=== PATIENT | female | born 1930 | race Caucasian/White ===

== ENCOUNTER → 2016-12-21 | Outpatient (CLI) | payer OTHER ==
--- NOTE | 2016-12-22 14:42 | RAD ---
EXAM DESCRIPTION: Thoracic Spine,AP Lateral CLINICAL HISTORY: 86 years,Female,BACK PAIN COMPARISON: None FINDINGS: The thoracic spine demonstrates T11 demonstrates a mild superior endplate compression fracture. And T6.. Disc heights appear unremarkable for age. Surrounding soft tissues are unremarkable. There are 12 pairs of ribs. There is hyperinflation of the lungs and paucity of lung markings IMPRESSION: Superior endplate mild compression fractures of T6 and T11 age-indeterminate. Moderate emphysematous changes Electronically signed by: Moy Burciaga MD 12/22/2016 2:41 PM CDT
== END | disposition home or self-care (01) ==
LOC: RAD 15:16
PROVIDERS: ATTEND Nurse Practitioner Family
DX: M54.6 Pain in thoracic spine (principal)

== ENCOUNTER 2020-07-02 09:00 | Inpatient (IN) | payer MEDICARE, OTHER ==
[2020-07-02] MEDS ORDERED: HYDROmorphone HCL INJ 2 MG/ML VIAL IV ONE (09:25)
[2020-07-02] MEDS ORDERED: ONDANSETRON INJ 4 MG/2 ML VIAL IV ONE (09:49)
--- NOTE | 2020-07-02 10:03 | RAD ---
EXAM DESCRIPTION: Pelvis (accession [id number]), Femur,Right (accession [id number]), Hip,Right 2 Views (accession [id number]) CLINICAL HISTORY: 89 years Female, fall this am COMPARISON: None. TECHNIQUE: Single view radiograph of the pelvis, 4 view radiograph of the right femur, 2 view radiograph of the right hip. IMPRESSION: Acute minimally displaced intertrochanteric fracture of the proximal right femur. 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 Lumbar spondylosis. Pelvic phleboliths with calcification in the midline pelvis which may represent uterine calcification of degenerative fibroids. Electronically signed by: Matthew Grace MD 07/02/2020 10:01 AM CDT [facility]
--- NOTE | 2020-07-02 10:03 | RAD ---
EXAM DESCRIPTION: Pelvis (accession [id number]), Femur,Right (accession [id number]), Hip,Right 2 Views (accession [id number]) CLINICAL HISTORY: 89 years Female, fall this am COMPARISON: None. TECHNIQUE: Single view radiograph of the pelvis, 4 view radiograph of the right femur, 2 view radiograph of the right hip. IMPRESSION: Acute minimally displaced intertrochanteric fracture of the proximal right femur. 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 Lumbar spondylosis. Pelvic phleboliths with calcification in the midline pelvis which may represent uterine calcification of degenerative fibroids. Electronically signed by: Matthew Grace MD 07/02/2020 10:01 AM CDT [facility]
--- NOTE | 2020-07-02 10:03 | RAD ---
EXAM DESCRIPTION: Pelvis (accession [id number]), Femur,Right (accession [id number]), Hip,Right 2 Views (accession [id number]) CLINICAL HISTORY: 89 years Female, fall this am COMPARISON: None. TECHNIQUE: Single view radiograph of the pelvis, 4 view radiograph of the right femur, 2 view radiograph of the right hip. IMPRESSION: Acute minimally displaced intertrochanteric fracture of the proximal right femur. 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 Lumbar spondylosis. Pelvic phleboliths with calcification in the midline pelvis which may represent uterine calcification of degenerative fibroids. Electronically signed by: Matthew Grace MD 07/02/2020 10:01 AM CDT [id number]
--- NOTE | 2020-07-02 10:25 | ED.PDOC ---
History of Present Illness - General Chief Complaint: Trauma Stated Complaint: Fall with R hip pain Time Seen by Provider: 07/02/20 09:12 Source: patient Exam Limitations: no limitations - History of Present Illness Initial Comments: The patient is an 89-year-old female presented to the emergency room after having fallen about 3 hours ago. The patient was unable to get off of the floor. EMS brought her in. She apparently tripped and fell and did not pass out. She is hurting in the right hip and no results. She apparently is completely functional on her own prior. She denies taking any blood thinners. She denies having any significant heart or lung problems. She denies any significant coronavirus exposure. She was at her baseline level of health until this happened. The patient is pleasant and cooperative. She appears to be neurovascularly at her baseline distally. Again pain is localized to the right hip. No evidence of significant bruising or palpable deformity. No laceration. Pain is present with both active and passive range of motion. Timing/Duration: 4-6 hours Improving Factors: immobilization Worsening Factors: movement Associated Symptoms: denies symptoms Allergies/Adverse Reactions: Allergies Ibuprofen Allergy (Verified 07/02/20 09:23) Penicillins Allergy (Verified 07/02/20 09:23) Review of Systems - Review of Systems Constitutional: States: no symptoms reported EENTM: States: no symptoms reported Respiratory: States: no symptoms reported Cardiology: States: no symptoms reported Gastrointestinal/Abdominal: States: no symptoms reported Genitourinary: States: no symptoms reported Musculoskeletal: States: see HPI Skin: States: no symptoms reported Neurological: States: no symptoms reported Endocrine: States: no symptoms reported Hematologic/Lymphatic: States: no symptoms reported All other Systems: No Change from Baseline Past Medical History (General) - Patient Medical History Hx Stroke: No Hx of COPD: No Hx Cardiac Disorders: No Hx Congestive Heart Failure: No Hx Hypertension: No Hx Diabetes: No Hx Cancer: No Surgical History: no surgical history - Vaccination History Hx Influenza Vaccination: No Hx Pneumococcal Vaccination: No - Social History Hx Tobacco Use: No Hx Alcohol Use: No Hx Substance Use: No Hx Substance Use Treatment: No Hx Depression: No - Female History Patient is a Female of Child Bearing Age (10 -59 yrs old): No Patient : No Family Medical History - Family History Mother Family History: No Known Living Status: Physical Exam - Physical Exam General Appearance: Alert Eye Exam: bilateral normal Ears, Nose, Throat: hearing grossly normal, normal pharynx Neck: full range of motion, supple Respiratory: lungs clear, normal breath sounds, no respiratory distress, no accessory muscle use Cardiovascular/Chest: normal peripheral pulses, regular rate, rhythm, no edema Peripheral Pulses: radial,right: 2+, radial,left: 2+ Gastrointestinal/Abdominal: non tender, soft Rectal Exam: deferred Back Exam: no vertebral tenderness Extremity: no pedal edema, no calf tenderness, normal capillary refill, other - See history of present illness 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 The patient appears to have a minimally displaced intertrochanteric fracture of the proximal right femur. This is based on multiple x-rays. She does appear to be neurovascularly her baseline. Last oral intake was around 3 AM this morning. No evidence of other injury. Preoperative labs are pending. The patient has received several doses of IV pain medications. Dr. Oliveira has been contacted and is planning on performing surgery later this morning or early this afternoon. The patient is being made n.p.o. Departure - Departure Clinical Impression: Inability to perform activities of daily living Fracture of femur Qualifiers: Encounter type: initial encounter Femur location: intertrochanteric Fracture type: closed Fracture alignment: nondisplaced Laterality: right Qualified Code(s): S72.144A - Nondisplaced intertrochanteric fracture of right femur, initial encounter for closed fracture Fall at home Qualifiers: Encounter type: initial encounter Qualified Code(s): W19.XXXA - Unspecified fall, initial encounter; Y92.009 - Unspecified place in unspecified non- institutional (private) residence as the place of occurrence of the external cause Disposition: Admit Patient Departure Forms: ED Discharge - Pt. Copy, Patient Portal Self Enrollment Decision To Admit - Decistion To Admit Decision to Admit Reason: Accidental Injury Decision to Admit Date: 07/02/20 Decision to Admit Time: 10:28
--- NOTE | 2020-07-02 11:20 | RAD ---
EXAM DESCRIPTION: Chest,1 View CLINICAL HISTORY: prior to surgery COMPARISON: None Available. TECHNIQUE: One view radiograph of the chest FINDINGS: Calcific atherosclerosis of the aortic arch. Cardiac silhouette shows normal heart size. Pulmonary vascularity is within normal limits. Lungs show no confluent infiltrates. No pleural effusion. No pneumothorax. No acute osseous abnormality. IMPRESSION: No acute cardiopulmonary process. Electronically signed by: Moy Wheeler MD 07/02/2020 11:18 AM CDT
[2020-07-02] MEDS ORDERED: LACTATED RINGERS 1,000 ML IVS ONE (12:06)
[2020-07-02] MEDS ORDERED: VANCOMYCIN HCL INJ 1,000 MG in SODIUM CHLORIDE 0.9% 250ML 250 ML IVPB ONE (12:09)
[2020-07-02] MEDS ORDERED: fentaNYL CITRATE INJ 50 MCG/ML 2 ML AMP ONE (12:11)
[2020-07-02] MEDS ORDERED: FAMOTIDINE INJ 10 MG/ML VIAL IV ONE (12:11)
[2020-07-02] MEDS ORDERED: KETAMINE HCL 100 MG/ML VIAL ONE (12:14)
[2020-07-02] MEDS ORDERED: ROCURONIUM BROMIDE 10 MG/ML VIAL ONE (12:33)
[2020-07-02] MEDS ORDERED: HYDROcodone 5MG/APAP 325MG 1 EA TAB PO PRN (12:40)
[2020-07-02] MEDS ORDERED: BUPIVACAINE 0.5% 30 ML VIAL INJ ONE (12:59)
[2020-07-02] MEDS ORDERED: BUPIVACAINE LIPOSOME 13.3 MG/ML VIAL INJ ONE (12:59)
[2020-07-02] MEDS ORDERED: ceFAZolin SODIUM 1 GM VIAL INJ ONE ×2 (13:13→13:29)
[2020-07-02] MEDS ORDERED: VANCOMYCIN HCL INJ 1,000 MG VIAL IVPB ONE ×2 (13:13→13:29)
[2020-07-02] MEDS ORDERED: SUGAMMADEX SODIUM 200 MG/2 ML VIAL IV ONE (13:36)
[2020-07-02] MEDS ORDERED: MAGNESIUM SULFATE INJ 1 GM/2 ML VIAL IVPB ONE (13:57)
[2020-07-02] MEDS ORDERED: PROPOFOL 200 MG/20 ML VIAL IV ONE (13:57)
[2020-07-02] MEDS ORDERED: GLYCOPYRROLATE 0.2 MG/ML VIAL IV ONE (13:57)
[2020-07-02] MEDS ORDERED: ePHEDrine SULF 50 MG/ML IV ONE (13:57)
[2020-07-02] MEDS ORDERED: DEXAMETHASONE INJ 10 MG/ML VIAL IV ONE (13:57)
[2020-07-02] MEDS ORDERED: ceFAZolin SODIUM 1 GM VIAL IVPB ONE (13:57)
[2020-07-02] MEDS ORDERED: LIDOCAINE 1% 10 ML VIAL INJ ONE (13:57)
[2020-07-02] MEDS ORDERED: LACTATED RINGERS 1,000 ML ONE (14:08)
--- NOTE | 2020-07-02 16:44 | RAD ---
EXAM DESCRIPTION: Hip,Right 2 Views CLINICAL HISTORY: 89 years Female post op COMPARISON: None. TECHNIQUE: RIGHT hip, two views FINDINGS: Postop film was acquired following placement of TFN transfixing the intertrochanteric fracture of the right hip. Fracture still well visualized. Alignment is anatomic. Subcutaneous stranding and emphysema is present. IMPRESSION: ORIF of the intertrochanteric right hip fracture with anatomic alignment Electronically signed by: Heidi Vides MD 07/02/2020 4:42 PM CDT
--- NOTE | 2020-07-02 16:45 | RAD ---
EXAM DESCRIPTION: Pelvis,2 or More Views CLINICAL HISTORY: 89 years Female post op COMPARISON: None. TECHNIQUE: Two AP views of the pelvis. FINDINGS: Postop film was acquired following placement of TFN transfixing the intertrochanteric fracture of the right hip. Fracture still well visualized. Alignment is anatomic. Subcutaneous stranding and emphysema is present. Degenerative changes in the lower lumbar spine. Calcifications in the pelvis likely representing fibroids. Phleboliths are also present. Symphysis pubis and SI joints appear intact. IMPRESSION: ORIF of the intertrochanteric right hip fracture with anatomic alignment Electronically signed by: Heidi Vides MD 07/02/2020 4:43 PM CDT
--- NOTE | 2020-07-02 17:21 | CONS ---
SUPERVISING PHYSICIAN: Garrison Mendoza MD DATE OF CONSULTATION: 07/02/20 CHIEF COMPLAINT: Right hip pain. HISTORY OF PRESENT ILLNESS: This is a 89-year-old female who presented to the Emergency Room after falling about 3 hours prior to admission to the Emergency Room. She was unable to get up off the floor. She tripped on something at home and fell. Her right hip was hurting and EMS was called. Her initial vital signs were temperature 97.3, heart rate 66, blood pressure 182/86, respiratory rate 16, O2 saturation 96% on room air. Lab studies were done and her CBC was unremarkable. Her electrolytes were basically within normal limits. Glucose was slightly high at 143. Liver enzymes were unremarkable. Urinalysis was negative. Hip x-ray shows acute minimally displaced intertrochanteric fracture of the proximal right femur, mild arthrosis of the hip without dislocation and lumbar spondylosis. Her femur and pelvis x-ray show acute minimally displaced intertrochanteric fracture of the proximal right femur. Chest x-ray shows no acute cardiopulmonary process. She has minimal medical history although she does not go to a primary care physician and has not for many years. She was taken to the Operating Room for Gamma nail repair of the right hip. There were no problems intraoperatively and she was discharged to the Medical/Surgical Floor in the hospital. PAST MEDICAL HISTORY: None reported although she does have hypertensive vital signs. PAST SURGICAL HISTORY: None. OUTPATIENT MEDICATIONS: None. ALLERGIES: IBUPROFEN, PENICILLIN. SOCIAL HISTORY: She lives in [place]. She is . She denies tobacco, ETOH or illicit drug use. REVIEW OF SYSTEMS: Negative except as per history of present illness. PHYSICAL EXAMINATION: VITAL SIGNS: Temperature 97.3, heart rate 96, blood pressure 116/60, respiratory rate 16, O2 saturation 94% on room air. GENERAL: This is an 89-year-old female patient who is lying in her hospital bed. She is in no acute distress. HEENT: Normocephalic, atraumatic. Pupils are equal and reactive. Oropharynx is clear. NECK: Supple without mass. RESPIRATORY: Essentially clear to auscultation bilaterally. CHEST: There is equal rise and fall of the chest with inspiration and expiration. CARDIOVASCULAR: Regular rate and rhythm. GASTROINTESTINAL: Abdomen is soft, nondistended, nontender. Bowel sounds are hypoactive. EXTREMITIES: She has a dressing to her right lateral hip that is dry and intact. Pedal pulses are palpable at +2. NEUROLOGIC: Awake, alert and oriented times three although she is slightly lethargic. Cranial nerves II-XII are grossly intact as tested. SKIN: Warm and dry. LABORATORY: Labs and films are as per history of present illness. IMPRESSION: 1. Right hip pain after same level fall resulting in a right intertrochanteric femur fracture status post Gamma nail repair by Dr. Wayne Oliveira, orthopedic surgeon, postoperative day #0. 2. Undiagnosed hypertension. PLAN: We will continue present supportive care. Orthopedic issues will be per Dr. Wayne Oliveira, orthopedic surgeon. She will begin her physical therapy for strengthening and conditioning tomorrow. I have started her on some lisinopril for tomorrow. We will monitor her blood pressure closely over the next few days. I will also do some labs for in the morning and encourage good pulmonary hygiene. We will follow the patient closely and follow as needed. #[id number] [facility]
[2020-07-02] MEDS ORDERED: ENOXAPARIN SODIUM 40 MG/0.4 ML SYG SUBCU ONE (18:58)
[2020-07-02] MEDS ORDERED: ENOXAPARIN SODIUM 30 MG/0.3 ML SYG SUBCU SCH (21:00)
[2020-07-03] MEDS: LISINOPRIL 5 MG TAB PO SCH (08:36)
[2020-07-03] MEDS ORDERED: ACETAMINOPHEN 500 MG TAB PO PRN (11:15)
[2020-07-03] MEDS ORDERED: ACETAMINOPHEN 500 MG TAB ONE (11:17)
[2020-07-03] MEDS ORDERED: ONDANSETRON INJ 4 MG/2 ML VIAL IV PRN (14:07)
[2020-07-03] MEDS ORDERED: PROMETHAZINE HCL INJ 12.5 MG in SODIUM CHLORIDE 0.9% 50ML 50 ML IVPB PRN (14:07)
[2020-07-03] MEDS ORDERED: PROMETHAZINE HCL INJ 25 MG in SODIUM CHLORIDE 0.9% 50ML 50 ML IVPB PRN (14:07)
[2020-07-03] MEDS ORDERED: SODIUM CHLORIDE 0.9% (FLUSH) 10 ML SYG IV PRN (14:07)
[2020-07-03] MEDS ORDERED: IV SET AND CAP CHANGE INJ INJ SCH (14:30)
--- NOTE | 2020-07-03 14:57 | PN ---
DATE: 07/03/20 SUBJECTIVE: The patient is doing really well. She up to a chair. OBJECTIVE: Afebrile. Vital signs are stable. Dressing is clean, dry and intact. ASSESSMENT: Status post gamma nailing for intertrochanteric fracture of the right hip. PLAN: The plan at this point is for partial weightbearing. We are going to have her likely transfer to rehab in a couple of days. #[id number] [facility]
[2020-07-03] MEDS ORDERED: traMADol HCL 50 MG TAB ONE (15:18)
[2020-07-03] MEDS: traMADol HCL 50 MG TAB PO PRN (15:31)
--- NOTE | 2020-07-03 16:01 | PN ---
SUPERVISING PHYSICIAN: Garrison Mendoza MD DATE: 07/03/20 SUBJECTIVE: The patient is lying in bed. She has no complaints other than her hip did hurt some during physical therapy, but it is much less pain than yesterday. Her main worry was over her staying alone. I did daughter at length. She lives in the [place] area and the patient will be discharged to a rehab hospital over there when she meets discharge criteria. OBJECTIVE: VITAL SIGNS: Temperature 97.6, heart rate 68, blood pressure 132/67, respiratory rate 18, O2 saturation 96% on room air. RESPIRATORY: Essentially clear to auscultation bilaterally. CARDIAC: Regular rate and rhythm. EXTREMITIES: She has a dressing to her right hip that is dry and intact. Bilateral pedal pulses are palpable at +2. NEUROLOGIC: Awake, alert and oriented times three. LABORATORY: Hemoglobin 11.9, hematocrit 34.9. All other labs and films have been reviewed via the EMR. ASSESSMENT: 1. Right hip pain after same level fall resulting in a right intertrochanteric femur fracture status post Gamma nail repair by Dr. Wayne Oliveira, orthopedic surgeon, postoperative day #1. 2. Undiagnosed hypertension. PLAN: We will continue present supportive care. I have sent a note to [employer] regarding her discharge to a rehab facility in [place]. Plan for discharge is on Sunday. According to the daughter, the patient's will be going with her to [place] and arrangements have been made for his care. I will repeat her H&H in the morning. She will continue with physical therapy for strengthening and conditioning as well as her orthopedic issues will be per Dr. Oliveira. We will continue to monitor the patient and treat as indicated. #[id number] [facility]
[2020-07-03] MEDS ORDERED: ENOXAPARIN SODIUM 30 MG/0.3 ML SYG SUBCU ONE (19:53)
[2020-07-03] MEDS ORDERED: DOCUSATE CALCIUM 240 MG CAP ONE (19:53)
[2020-07-03] MEDS: DOCUSATE CALCIUM 240 MG CAP PO SCH (20:43)
[2020-07-03] MEDS: ENOXAPARIN SODIUM 30 MG/0.3 ML SYG SUBCU SCH (22:29)
[2020-07-04] MEDS ORDERED: traMADol HCL 50 MG TAB ONE ×2 (00:08→08:29)
[2020-07-04] MEDS: traMADol HCL 50 MG TAB PO PRN ×2 (00:09→08:50)
[2020-07-04] MEDS ORDERED: MAGNESIUM OXIDE 400 MG TAB ONE (08:28)
[2020-07-04] MEDS: MAGNESIUM OXIDE 400 MG TAB PO SCH (08:50)
[2020-07-04] MEDS: LISINOPRIL 5 MG TAB PO SCH (08:54)
[2020-07-04] MEDS ORDERED: ENOXAPARIN SODIUM 30 MG/0.3 ML SYG SUBCU ONE ×2 (13:54→20:17)
[2020-07-04] MEDS: ENOXAPARIN SODIUM 30 MG/0.3 ML SYG SUBCU SCH ×2 (14:02→22:52)
[2020-07-04] MEDS ORDERED: CALCIUM CARBONATE (ANTACID) 500 MG CHEWABLE TAB PO PRN (17:12)
[2020-07-04] MEDS ORDERED: CALCIUM CARBONATE (ANTACID) 500 MG CHEWABLE TAB PO ONE ×2 (17:21→17:32)
--- NOTE | 2020-07-04 18:40 | PN ---
SUPERVISING PHYSICIAN: Garrison Mendoza MD DATE: 07/04/20 SUBJECTIVE: The patient is sitting up in bed. She feels much better today than yesterday. We discussed her discharge tomorrow to [facility] in [place]. No complaints of chest pain, nausea, vomiting, diarrhea or shortness of breath. OBJECTIVE: VITAL SIGNS: Temperature 97.7, heart rate 74, blood pressure 133/79, respiratory rate 18, O2 saturation 95% on room air. LABORATORY: Hemoglobin 11, hematocrit 32.3. All other labs and films have been reviewed via the EMR. ASSESSMENT: 1. Right hip pain after same level fall resulting in a right intertrochanteric femur fracture status post Gamma nail repair by Dr. Wayne Oliveira, orthopedic surgeon, postoperative day #2. 2. Undiagnosed hypertension. PLAN: We will continue present supportive care. Orthopedic issues will be per Dr. Wayne Oliveira, orthopedic surgeon. She has been accepted to [facility] in [place] and she should be able to transfer there in the morning. All the information for the facility is in her chart. We will continue to monitor the patient and treat as needed. #[id number] [facility]
[2020-07-04] MEDS ORDERED: HYDROcodone 5MG/APAP 325MG 1 EA TAB ONE (20:15)
[2020-07-04] MEDS ORDERED: DOCUSATE CALCIUM 240 MG CAP ONE ×2 (20:16)
[2020-07-04] MEDS: DOCUSATE CALCIUM 240 MG CAP PO SCH (20:32)
--- NOTE | 2020-07-05 08:55 | PN ---
DATE: 07/05/20 SUBJECTIVE: Ms. You is doing well and has good pain control. OBJECTIVE: Afebrile. Vital signs are stable. The wound is clean. There are no signs or symptoms of infection. ASSESSMENT: Status post Gamma nailing for intertrochanteric fracture of the right hip. PLAN: The plan at this point is for her to be transferred to rehab today. #[id number] [facility]
[2020-07-05] MEDS ORDERED: SODIUM CHLORIDE 0.9% (FLUSH) 10 ML SYG IV SCH (09:00)
[2020-07-05] MEDS ORDERED: SODIUM CHLORIDE 0.9% (FLUSH) 10 ML SYG ONE (11:32)
[2020-07-05] MEDS ORDERED: ENOXAPARIN SODIUM 30 MG/0.3 ML SYG SUBCU ONE (11:32)
[2020-07-05] MEDS ORDERED: MAGNESIUM OXIDE 400 MG TAB ONE (11:32)
[2020-07-05] MEDS ORDERED: LISINOPRIL 5 MG TAB ONE (11:32)
[2020-07-05] MEDS: MAGNESIUM OXIDE 400 MG TAB PO SCH (11:34)
[2020-07-05] MEDS: LISINOPRIL 5 MG TAB PO SCH (11:34)
[2020-07-05] MEDS: ENOXAPARIN SODIUM 30 MG/0.3 ML SYG SUBCU SCH (11:35)
[2020-07-05 11:57] VITALS: TEMP 98.4
[2020-07-05 12:55] VITALS: BP 175/80; O2SAT 97
[2020-07-05] MEDS ORDERED: traMADol HCL 50 MG TAB ONE (13:19)
[2020-07-05] MEDS ORDERED: HYDROcodone 5MG/APAP 325MG 1 EA TAB PO ONE (13:21)
[2020-07-05] MEDS ORDERED: HYDROcodone 5MG/APAP 325MG 1 EA TAB ONE (13:22)
--- NOTE | 2020-07-06 11:24 | DS ---
SUPERVISING PHYSICIAN: Sulaiman Mast MD ADMISSION DIAGNOSIS: 1. Right hip pain after same level fall resulting in a right intertrochanteric femur fracture status post Gamma nail repair by Dr. Wayne Oliveira, orthopedic surgeon, postoperative day #0. 2. Undiagnosed hypertension. DISCHARGE DIAGNOSIS: 1. Right hip pain after same level fall resulting in a right intertrochanteric femur fracture status post Gamma nail repair by Dr. Wayne Oliveira, orthopedic surgeon, postoperative day #3. 2. Undiagnosed hypertension. REASON FOR HOSPITALIZATION: This is a 89-year-old female who presented to the Emergency Room after falling about 3 hours prior to admission to the Emergency Room. She was unable to get up off the floor. She tripped on something at home and fell. Her right hip was hurting and EMS was called. Her initial vital signs were temperature 97.3, heart rate 66, blood pressure 182/86, respiratory rate 16, O2 saturation 96% on room air. Lab studies were done and her CBC was unremarkable. Her electrolytes were basically within normal limits. Glucose was slightly high at 143. Liver enzymes were unremarkable. Urinalysis was negative. Hip x-ray shows acute minimally displaced intertrochanteric fracture of the proximal right femur, mild arthrosis of the hip without dislocation and lumbar spondylosis. Her femur and pelvis x-ray show acute minimally displaced intertrochanteric fracture of the proximal right femur. Chest x-ray shows no acute cardiopulmonary process. She has minimal medical history although she does not go to a primary care physician and has not for many years. She was taken to the Operating Room for Gamma nail repair of the right hip. There were no problems intraoperatively and she was discharged to the Medical/Surgical Floor in the hospital. LABORATORY: Postoperative hemoglobin 11.0 and hematocrit 32.3. Chemistries showed normal electrolytes. Liver functions were all within normal limits. Urinalysis showed trace of intact blood. MICROBIOLOGY: COVID swab was negative. RADIOLOGY: Preoperatively, pelvis x-ray, hip x-ray, femur x-ray showed an acute minimally displaced intertrochanteric fracture of the proximal right femur. Please see all those reports for details. Postoperative pelvic x-ray per radiologic interpretation showed ORIF of the intertrochanteric hip fracture with anatomic alignment. Please see those reports for details. HOSPITAL COURSE: Ms. You was admitted on 07/02/20 for Gamma nailing of a right hip fracture. She was taken to surgery the same day as admission. She had no intraoperative complications. She had no postoperative complications. She did well with physical therapy. After further discussion with the family who live in the [facility], it was decided the best course of treatment was to have the patient transferred to a halfway and rehab facility closer to family members. Arrangements were then made for her to be admitted to [facility]. She was found clinically stable enough to continue with management as a rehab patient and was discharged to be transferred by privately owned vehicle. PLAN: Ms. You was discharged and admitted to rehab as noted above. She can followup with Dr. Oliveira and call to schedule an appointment. Diet was regular diet as tolerated. Physical therapy will evaluate and treat. The patient was not on any home medications. MEDICATIONS PRESCRIBED ON DISCHARGE: 1. Lisinopril 5 mg daily. 2. Magnesium oxide 40 mg daily. 3. Xarelto 10 mg daily for a total of 27 days. 4. Keflex 500 mg b.i.d. for 5 days. CONDITION ON DISCHARGE: Stable and improved. DISPOSITION: The patient was discharged and transferred to [facility] facility. #[id number] [facility]
[2020-07-06] MEDS ORDERED: BISACODYL SUPPOSITORY 10 MG PR ONE (21:00)
[2020-07-06] MEDS ORDERED: MAGNESIUM HYDROXIDE 30 ML UD PO ONE (21:00)
--- NOTE | 2020-07-07 10:14 | OP ---
DATE OF PROCEDURE: 07/02/20 PREOPERATIVE DIAGNOSIS: 1. Intertrochanteric fracture of the right hip. POSTOPERATIVE DIAGNOSIS: 1. Intertrochanteric fracture of the right hip. PROCEDURE: 1. Gamma nail. SURGEON: Wayne Oliveira MD. REAMING MACHINE TENDER: Mu Tijerina CST, SA-C. ANESTHESIA: General anesthesia. COMPLICATIONS: None. FINDINGS: Intertrochanteric fracture of the right hip. INDICATION: Ms. You has a history of falling on the day of presentation. She had the acute onset of pain in the hip and subsequently had x-rays that revealed an intertrochanteric fracture of the hip. After discussing the risks, benefits and alternatives to operative therapy, she gave informed consent. PROCEDURE: The patient was brought to the Operating Room and placed in the supine position. General anesthesia was administered and the patient was placed on the fracture table. The fracture was provisionally reduced under fluoroscopic imaging and after reduction, the leg and hemipelvis were sterilely prepped and draped. An incision was made just proximal to the greater trochanter and dissection was carried through the iliotibial band and down to the greater trochanter. A starting pin was placed and a one-step reamer was used to open the femoral canal. A 125 degree angled Gamma nail was inserted into the canal to the appropriate level. A guide pin was placed from the lateral cortex into the femoral head. The appropriate length compression screw was measured and inserted with the placement guided under direct imaging. Following that, the distal locking screw was drilled, measured, and placed under imaging. The proximal locking screw was placed through the outrigger into the top of the nail and the outrigger removed. The final construct was imaged and the wounds were thoroughly irrigated, followed by closure with Monocryl suture. Sterile dressings were placed. The patient was awoken from anesthesia and taken to the Recovery Room. Postoperatively, she will be partial weightbearing and we will get her up on the day after surgery. #[id number] [facility]
== END 2020-07-05 13:45 | DRG 482 ==
LOC: ER 09:00 → OBSVTOIN 13:56 → MS 13:56
PROVIDERS: ADMIT Nurse Practitioner Acute Care; ATTEND Nurse Practitioner Family
PROC: 0QS634Z Reposition Right Upper Femur with Internal Fixation Device, Percutaneous Approach (ICD-10-PCS; principal; 2020-07-02 12:30)
DX: S72.141A Displaced intertrochanteric fracture of right femur, initial encounter for closed fracture (principal); I10 Essential (primary) hypertension; Z88.0 Allergy status to penicillin; Z88.6 Allergy status to analgesic agent; F03.90 Unspecified dementia, unspecified severity, without behavioral disturbance, psychotic disturbance, mood disturbance, and anxiety; W19.XXXA Unspecified fall, initial encounter; Y92.009 Unspecified place in unspecified non-institutional (private) residence as the place of occurrence of the external cause

== ENCOUNTER → 2020-08-02 | Outpatient (CLI) | payer MEDICARE ==
--- NOTE | 2020-08-02 13:41 | RAD ---
EXAM DESCRIPTION: Femur,Right CLINICAL HISTORY: 89 years Female, pain in right hip COMPARISON: 07/02/2020 Findings: Four view(s)/radiograph(s) Healing internally fixated intertrochanteric right femur fracture. No hardware complication. No new fracture identified. Osteopenia. Similar degenerative changes. Vascular calcifications. Calcified uterine fibroids and pelvic phleboliths. IMPRESSION: Healing internally fixated intertrochanteric right femur fracture. Electronically signed by: James Jensen MD 08/02/2020 1:39 PM [facility]
== END ==
LOC: RAD 10:21
PROVIDERS: ATTEND Orthopaedic Surgery
DX: S72.109 Unspecified trochanteric fracture of unspecified femur (principal); Z98.890 Other specified postprocedural states

== ENCOUNTER → 2020-08-30 | Outpatient (CLI) | payer MEDICARE ==
--- NOTE | 2020-08-30 13:08 | RAD ---
2 radiographs right hip Indication: CLOSED FRACTURE, RIGHT HIP Comparison: July 02, 2020 Impression: Prior ORIF of intertrochanteric right femoral fracture redemonstrated. The fracture appears near completely healed with only minimal lucency present. No new complicating features identified. Mild to moderate bilateral hip osteoarthritis redemonstrated. Electronically signed by: Omar Torres MD 08/30/2020 1:07 PM [facility]
== END ==
LOC: RAD 09:36
PROVIDERS: ATTEND Orthopaedic Surgery
DX: S72.144D Nondisplaced intertrochanteric fracture of right femur, subsequent encounter for closed fracture with routine healing (principal); M16.0 Bilateral primary osteoarthritis of hip; Z98.890 Other specified postprocedural states

== ENCOUNTER → 2020-10-01 | Outpatient (CLI) | payer MEDICARE ==
--- NOTE | 2020-10-02 11:20 | RAD ---
EXAM DESCRIPTION: Hip,Right 2 Views CLINICAL HISTORY: INTERTROCHANTERIC FX COMPARISON: August 30, 2020 IMPRESSION: 2 views of the right hip again demonstrate intramedullary moni with single distal interlocking screw and gamma nail fixation of the right proximal femur. No hardware failure or loosening is seen. No acute fracture or dislocation. Mild joint space narrowing and sclerotic changes to the superior lateral acetabulum are seen compatible with mild osteoarthritic changes. Multiple calcifications in the pelvis are seen unchanged from previous exam. The larger calcifications in the right mid pelvis could represent calcified uterine fibroid versus ovarian calcification. Please note, the date on this exam of March 06, 2010 is incorrect secondary to technical issues that was unable to be resolved. This exam was performed on October 01, 2020. Electronically signed by: Carlos Shaw MD 10/02/2020 11:19 AM [facility]
== END ==
LOC: RAD 08:43
PROVIDERS: ATTEND Orthopaedic Surgery
DX: S72.141D Displaced intertrochanteric fracture of right femur, subsequent encounter for closed fracture with routine healing (principal); M25.851 Other specified joint disorders, right hip; N94.9 Unspecified condition associated with female genital organs and menstrual cycle; Z98.890 Other specified postprocedural states